=== PATIENT | male | born 1960 ===

== ENCOUNTER 2023-05-30 05:53 | Observation (INO) ==
[2023-05-30] MEDS ORDERED: Buffered Lidocaine 1% SYRIN 1 ml INTRADERM ONE (06:00)
[2023-05-30] MEDS ORDERED: Lactated Ringers 1000 ml BAG 1,000 ML IV SCH ×2 (06:00→11:00)
[2023-05-30] MEDS ORDERED: ceFAZolin 2 GM PREMIX 2 GM/50 ML BAG ONE (06:13)
[2023-05-30] MEDS ORDERED: ROPIVACAINE 5 MG/ML 30 ML BTL (0.5%) ONE ×2 (06:54→07:24)
[2023-05-30 06:57] LABS: Rapid COVID-19 Molecular Undetected (Undetected)
[2023-05-30] MEDS ORDERED: fentaNYL 100 mcg/2 ml 50 MCG/ML VIAL ONE (07:19)
[2023-05-30] MEDS ORDERED: Midazolam 2 mg/2 ml VIAL 1 mg/ml 2 ml VIAL (2 mg) ONE (07:19)
[2023-05-30] MEDS ORDERED: Lidocaine 2% PF 5 ML VIAL ONE (07:21)
[2023-05-30] MEDS ORDERED: Propofol 10 MG/ML 20 ML BTL ONE ×2 (07:21→09:21)
[2023-05-30] MEDS ORDERED: Ketamine HCL 50 mg/ml 10 ml VIAL (500 MG) ONE (07:56)
[2023-05-30] MEDS ORDERED: Acetaminophen IV 1 GM/100ML 1,000 MG/100 ML BAG IV ONE (08:11)
[2023-05-30] MEDS ORDERED: Naloxone 0.4 mg VIAL 0.4 mg/ml 1 ml VIAL IV PRN (08:45)
[2023-05-30] MEDS ORDERED: Acetaminophen IV 1 GM/100ML 1,000 MG/100 ML BAG IV PRN (08:45)
[2023-05-30] MEDS ORDERED: fentaNYL 100 mcg/2 ml 50 MCG/ML VIAL IV PRN (08:45)
[2023-05-30] MEDS ORDERED: HYDROmorphone 1 MG/1 ML SYRINGE IV PRN (08:45)
[2023-05-30] MEDS ORDERED: Ondansetron 4 mg VIAL 2 MG/ML 2 ml VIAL IV PRN ×2 (08:45→10:11)
[2023-05-30] MEDS ORDERED: Lactulose 30 ml UDC PO PRN (10:11)
[2023-05-30] MEDS ORDERED: Morphine 2 MG/ML SYRINGE IV PRN (10:11)
[2023-05-30] MEDS ORDERED: Magnesium Hydroxide LIQ 30 ML UDC PO PRN (10:11)
[2023-05-30] MEDS ORDERED: Ondansetron ODT 4 mg TAB 4 MG TAB PO PRN (10:11)
[2023-05-30 14:48] VITALS: BP 126/64
[2023-05-30] MEDS ORDERED: ceFAZolin 1 GM ADVAN 1 GM in NS 0.9% 50 ML 50 ML IVPB SCH (16:00)
[2023-05-30] MEDS ORDERED: Magnesium Hydroxide LIQ 30 ML UDC PO SCH (21:00)
[2023-05-31] MEDS ORDERED: Vitamin THERAPEUTIC TAB PO SCH (09:00)
== END 2023-05-30 16:30 | disposition home or self-care (01) ==
LOC: OR 05:53 → SSU 05:53 → EDSTATUS 07:30
PROVIDERS: ADMIT Orthopaedic Surgery Adult Reconstructive Orthopaedic Surgery; ATTEND Orthopaedic Surgery Adult Reconstructive Orthopaedic Surgery